=== PATIENT | female | born 1965 | race Caucasian/White ===

== ENCOUNTER → 2024-08-24 12:50 | Outpatient (REF) | payer BC, SELFPAY | LOC: HWWDC 12:50 | PROVIDERS: ATTENDING PHYSICIAN Family Medicine | DX: Z12.31 Encounter for screening mammogram for malignant neoplasm of breast (principal) | CPT/HCPCS: 77063; 77067 ==

== ENCOUNTER → 2025-02-10 08:31 | Outpatient (REF) | payer BC, SELFPAY | LOC: RAD 08:31 | PROVIDERS: ATTENDING PHYSICIAN Family Medicine | DX: M34.9 Systemic sclerosis, unspecified (principal) | CPT/HCPCS: 71250 ==

== ENCOUNTER → 2025-02-15 08:45 | Outpatient (REF) | payer BC, SELFPAY | LOC: RSP 08:45 | PROVIDERS: ATTENDING PHYSICIAN Family Medicine | DX: M34.9 Systemic sclerosis, unspecified (principal) | CPT/HCPCS: 94727; 94729; 88738; 94010 ==

== ENCOUNTER → 2025-02-20 17:36 | Outpatient (REF) | payer BC, SELFPAY | LOC: RCS 17:36 | PROVIDERS: ATTENDING PHYSICIAN Family Medicine | DX: M34.9 Systemic sclerosis, unspecified (principal) | CPT/HCPCS: 93306 ==

== ENCOUNTER → 2025-10-02 13:10 | Outpatient (REF) | payer BC, SELFPAY | LOC: WDC 13:10 | PROVIDERS: ATTENDING PHYSICIAN Family Medicine | DX: Z12.31 Encounter for screening mammogram for malignant neoplasm of breast (principal) | CPT/HCPCS: 77063; 77067 ==